=== PATIENT | male | born 1930 | race Caucasian/White ===

== ENCOUNTER 2016-08-04 16:45 | Emergency (ER) | payer MEDICARE ==
[2016-08-04 17:22] LABS: BASOPHIL 0.5 % (0-2); EOSINOPHIL 1.4 % (0-7); HCT 35.7 % (42.0-52.0); HGB 12.3 g/dl (13.2-18.0); LYMPHOCYTE 9.3 % (15-48); MCH 31.5 pg (25.0-31.0); MCHC 34.5 g/dL (32.0-36.0); MCV 91.5 fL (78.0-100.0); MONOCYTE 5.3 % (0-12); MPV 9.7 fL (6.0-9.5); NEUTROPHIL 83.5 % (41-80); PLT 187 K/uL (150-400); RDW 13.5 % (11.5-14.0); WBC 5.9 K/uL (4.0-10.5)
[2016-08-04 17:33] LABS: INR 1.92 (0.9-1.2); PROTHROMBIN TIME 21.4 SECONDS (11.7-14.0)
[2016-08-04 17:39] LABS: ALBUMIN 4.5 g/dL (3.4-4.8); BILIRUBIN - TOTAL 0.4 mg/dL (0.1-1.0); CREATININE 1.5 mg/dL (0.7-1.2); GLOBULIN (CALCULATION) 2.7 g/dL (2.2-4.2); POTASSIUM 4.2 mmol/L (3.5-5.1); TOTAL PROTEIN 7.2 g/dL (6.4-8.3)
[2016-08-04 18:34] LABS: BILIRUBIN NEGATIVE (NEGATIVE); BLOOD TRACE-INTACT Ery/uL (NEGATIVE); CLARITY CLEAR (CLEAR); COLOR YELLOW (YELLOW); GLUCOSE (U) NORMAL (NORMAL); KETONE (U) NEGATIVE (NEGATIVE); LEUKOCYTES 1+ Leu/uL (NEGATIVE); NITRITE NEGATIVE (NEGATIVE); PROTEIN TRACE (LOW) mg/dL (NEGATIVE); SPECIFIC GRAVITY 1.015 (1.001-1.030); UROBILINOGEN 0.2 mg/dL (0.2-1.0); pH 5.5 (5.0-9.0)
[2016-08-04 18:39] LABS: BACTERIA TRACE
[2016-08-25] MEDS ORDERED: AUGMENTIN PO (18:59)
[2016-08-25] MEDS ORDERED: PROBIOTIC1 EAC1 PO (19:00)
[2016-08-25] MEDS ORDERED: NORVASC5 MG PO (19:00)
[2016-08-25] MEDS ORDERED: FOLIC ACID1 MG PO (19:00)
[2016-08-25] MEDS ORDERED: CRESTOR10 MG PO (19:01)
[2016-08-25] MEDS ORDERED: SYNTHROID50 MCG PO (19:01)
[2016-08-25] MEDS ORDERED: COUMADIN2 MG PO (19:01)
[2016-08-25] MEDS ORDERED: MAG-OXIDE 400M400 MG PO (19:01)
[2016-08-25] MEDS ORDERED: COREG 3.125M3.125 MG PO (19:02)
[2016-08-25] MEDS ORDERED: NITROQUIK SL0.4 MG SL (19:02)
[2016-08-25] MEDS ORDERED: COMBIVENT RESPIM4 GM INH (19:02)
[2016-08-25] MEDS ORDERED: AMIODARONE HCL200 MG PO (19:03)
[2016-08-25] MEDS ORDERED: CARDURA2 MG PO (19:03)
[2016-08-25] MEDS ORDERED: DITROPAN5 MG PO (19:03)
[2016-08-25] MEDS ORDERED: ANTIVERT12.5 MG PO (19:04)
[2016-08-25] MEDS ORDERED: PRILOSEC20 MG PO (19:04)
== END 2016-08-04 19:00 | disposition home or self-care (01) ==
LOC: FER 16:45
PROVIDERS: Emergency Medicine
DX: H83.02 Labyrinthitis, left ear (principal); Z88.5 Allergy status to narcotic agent
CPT/HCPCS: 36415; 70450; 71010; 80053; 81001; 84484; 85025; 85610; 93005; J2405

== ENCOUNTER 2016-10-08 05:22 | Emergency (ER) | payer MEDICARE ==
[~2016-10-08 05:22] MED LIST: AMIODARONE HCL200 MG PO; ANTIVERT12.5 MG PO; AUGMENTIN PO; CARDURA2 MG PO; COMBIVENT RESPIM4 GM INH; COREG 3.125M3.125 MG PO; COUMADIN2 MG PO; CRESTOR10 MG PO; DITROPAN5 MG PO; FOLIC ACID1 MG PO; MAG-OXIDE 400M400 MG PO; NITROQUIK SL0.4 MG SL; NORVASC5 MG PO; PRILOSEC20 MG PO; PROBIOTIC1 EAC1 PO; SYNTHROID50 MCG PO
[2016-10-08 06:00] LABS: BASOPHIL 0.4 % (0-2); EOSINOPHIL 1.6 % (0-7); HCT 34.5 % (42.0-52.0); HGB 11.6 g/dl (13.2-18.0); LYMPHOCYTE 8.6 % (15-48); MCH 29.5 pg (25.0-31.0); MCHC 33.6 g/dL (32.0-36.0); MCV 87.8 fL (78.0-100.0); MONOCYTE 7.8 % (0-12); MPV 9.5 fL (6.0-9.5); NEUTROPHIL 81.6 % (41-80); PLT 190 K/uL (150-400); RBC 3.93 M/uL (4.70-6.00); WBC 9.3 K/uL (4.0-10.5)
[2016-10-08 06:07] LABS: INR 2.84 (0.9-1.2); PROTHROMBIN TIME 29.1 SECONDS (11.7-14.0)
[2016-10-08 06:17] LABS: ALBUMIN 4.2 g/dL (3.4-4.8); BILIRUBIN - TOTAL 0.3 mg/dL (0.1-1.0); CREATININE 3.2 mg/dL (0.7-1.2); GLOBULIN (CALCULATION) 3.2 g/dL (2.2-4.2); POTASSIUM 4.1 mmol/L (3.5-5.1); TOTAL PROTEIN 7.4 g/dL (6.4-8.3)
[2016-10-08 07:16] LABS: BILIRUBIN NEGATIVE (NEGATIVE); BLOOD 3+ Ery/uL (NEGATIVE); CLARITY CLEAR (CLEAR); COLOR YELLOW (YELLOW); GLUCOSE (U) NORMAL (NORMAL); KETONE (U) NEGATIVE (NEGATIVE); LEUKOCYTES NEGATIVE Leu/uL (NEGATIVE); NITRITE NEGATIVE (NEGATIVE); PROTEIN NEGATIVE (NEGATIVE); UROBILINOGEN 0.2 mg/dL (0.2-1.0)
[2016-10-08 07:22] LABS: AMORPHOUS URATES CRYSTALS TRACE; URINARY RBC 20-50; URINARY WBC RARE
== END 2016-10-08 07:52 | disposition home or self-care (01) ==
LOC: FER 05:22
PROVIDERS: Emergency Medicine Emergency Medical Services
DX: N13.2 Hydronephrosis with renal and ureteral calculous obstruction (principal); I13.10 Hypertensive heart and chronic kidney disease without heart failure, with stage 1 through stage 4 chronic kidney disease, or unspecified chronic kidney disease; N18.9 Chronic kidney disease, unspecified; I25.810 Atherosclerosis of coronary artery bypass graft(s) without angina pectoris; E86.9 Volume depletion, unspecified; I48.91 Unspecified atrial fibrillation; E03.9 Hypothyroidism, unspecified; Z87.442 Personal history of urinary calculi; Z87.440 Personal history of urinary (tract) infections; Z85.46 Personal history of malignant neoplasm of prostate; Z88.5 Allergy status to narcotic agent; Z88.8 Allergy status to other drugs, medicaments and biological substances; Z79.01 Long term (current) use of anticoagulants; Z79.899 Other long term (current) drug therapy; Z93.2 Ileostomy status; Z95.0 Presence of cardiac pacemaker; Z95.1 Presence of aortocoronary bypass graft
CPT/HCPCS: 36415; 80053; 81001; 83605; 85025; 85610; 85730; J2405